=== PATIENT | male | born 1935 | race Caucasian/White ===

== ENCOUNTER → 2016-06-22 | Outpatient (CLI) | payer MEDICARE, OTHER ==
[~2016-06-22] MED LIST: CHOL500014 PO; DIGO125T PO; DILT120T3 PO; FISH OIL PO; FLAX SEED PO; FURO40TA6 PO; GLUC-121 PO; LOSA1TAB16 PO; LOSA50TA6 PO; MULT-516 PO; POTA20TA91 PO; REGADENOSON 0.4 MG/5 ML SYRINGE ONE; ROSU20TA PO; TAMS0.4C2 PO; VITA1TAB3 PO; WARF5TAB7 PO; [UNRECOGNIZED DRUG - REMARK] PO
== END | disposition home or self-care (01) ==
LOC: CFH 07:57
PROVIDERS: ATTEND Internal Medicine Cardiovascular Disease
DX: I48.2 Chronic atrial fibrillation (principal); I10 Essential (primary) hypertension
CPT/HCPCS: 78452; 93017; 93306; A9502; J2785

== ENCOUNTER 2018-10-26 21:54 | Emergency (ER) | payer MEDICARE, OTHER ==
[~2018-10-26] VITALS: Ht 182.9 cm; Wt 105.3 kg
[~2018-10-26 21:54] MED LIST changes: -CHOL500014 PO; +CHOL500045 PO; -LOSA1TAB16 PO; +LOSA1TAB19 PO; +LOSA50TA14 PO; -LOSA50TA6 PO; -REGADENOSON 0.4 MG/5 ML SYRINGE ONE; -ROSU20TA PO; +ROSU20TA2 PO; +WARF-36 PO; -WARF5TAB7 PO
[2018-10-26 21:56] VITALS: BP 130/67
[2018-10-26] MEDS ORDERED: LIDOCAINE-MPF 1%, 5ML ONE (22:20)
[2018-10-26] MEDS ORDERED: LIDOCAINE-MPF 1%, 5ML INFIL ONE (22:30)
== END 2018-10-26 23:01 | disposition home or self-care (01) ==
LOC: ED 22:49
DX: S61.214A Laceration without foreign body of right ring finger without damage to nail, initial encounter (principal); S61.216A Laceration without foreign body of right little finger without damage to nail, initial encounter; I48.91 Unspecified atrial fibrillation; I10 Essential (primary) hypertension; E78.5 Hyperlipidemia, unspecified; X58.XXXA Exposure to other specified factors, initial encounter; Y93.89 Activity, other specified; Y92.009 Unspecified place in unspecified non-institutional (private) residence as the place of occurrence of the external cause; Y99.8 Other external cause status
CPT/HCPCS: 12041; 99284

== ENCOUNTER 2020-10-20 13:11 | Outpatient (CLI) | payer MEDICARE ==
[~2020-10-20 13:11] MED LIST changes: -DIGO125T PO; +DIGO125T85 PO
== END 2020-10-20 23:59 | disposition home or self-care (01) ==
LOC: CVU 13:11
PROVIDERS: ATTEND Internal Medicine Cardiovascular Disease
DX: I08.8 Other rheumatic multiple valve diseases (principal); I65.23 Occlusion and stenosis of bilateral carotid arteries; I11.9 Hypertensive heart disease without heart failure; I48.91 Unspecified atrial fibrillation
CPT/HCPCS: 93306; 93356; 93880